=== PATIENT | male | born 1950 | race Caucasian/White ===

== ENCOUNTER 2020-01-05 08:00 | Emergency (ER) | payer MEDICARE ==
--- NOTE | 2020-01-05 08:31 | EDM.PDOC ---
ED HPI GENERAL MEDICAL PROBLEM - General Chief Complaint: Cardiovascular Problem Stated Complaint: HEART ISSUES Time Seen by Provider: 01/05/20 08:15 Source of Information: Reports: Patient History Limitations: Reports: No Limitations - History of Present Illness INITIAL COMMENTS - FREE TEXT/NARRATIVE: 69-year-old male with a years of recurring atrial tachycardia, had a routine checkup 1 week ago and was set up for a stress test on Monday. He did not feel well on Monday though, because of persistent tachycardia so missed his stress test. This morning he woke up and felt great, however shortly after waking up he developed tachycardia. He was able to break it several times but an hour ago he was going upstairs and felt lightheaded and diaphoretic so thought he should get checked out. He has not had any pain, he did take some extra atenolol, he had some nausea but no vomiting which is unusual for him to have nausea. Onset: Sudden (This morning his episodes started fairly suddenly around 2 hours ago) Location: Reports: Chest Associated Symptoms: Reports: Diaphoresis, Shortness of Breath, Other (Nausea but no vomiting). Denies: Confusion, Cough - Related Data Allergies Allergy/AdvReac Type Severity Reaction Status Date / Time amoxicillin AdvReac Rash Verified 01/05/20 08:11 Home Meds: Home Meds atenoloL [Atenolol] 25 mg PO DAILY 10/23/13 [History] Past Medical History HEENT History: Reports: Impaired Vision Cardiovascular History: Reports: Arrhythmia - Infectious Disease History Infectious Disease History: Reports: Chicken Pox, Influenza, Measles, Mumps - Past Surgical History Head Surgeries/Procedures: Reports: None HEENT Surgical History: Reports: None Cardiovascular Surgical History: Reports: None Dermatological Surgical History: Reports: None Social & Family History - Tobacco Use Tobacco Use Status *Q: Never Tobacco User Second Hand Smoke Exposure: No - Caffeine Use Caffeine Use: Reports: None - Recreational Drug Use Recreational Drug Use: No ED ROS GENERAL - Review of Systems Review Of Systems: See Below Constitutional: Reports: Malaise. Denies: Fever, Chills HEENT: Reports: No Symptoms Respiratory: Reports: Shortness of Breath (With activity) Cardiovascular: Reports: Palpitations. Denies: Chest Pain GI/Abdominal: Reports: Nausea. Denies: Abdominal Pain, Vomiting Musculoskeletal: Reports: No Symptoms Skin: Reports: Diaphoresis (Resolved) Neurological: Reports: Weakness. Denies: Paresthesia Psychiatric: Reports: No Symptoms ED EXAM, GENERAL - Physical Exam Exam: See Below Exam Limited By: No Limitations General Appearance: Alert, No Apparent Distress Eye Exam: Bilateral Eye: Normal Inspection Respiratory/Chest: No Respiratory Distress, Lungs Clear Cardiovascular: Regular Rate, Rhythm, Bradycardia GI/Abdominal: Soft, Non-Tender Extremities: Normal Inspection. No: Pedal Edema Neurological: Alert, Oriented Psychiatric: Normal Affect, Normal Mood Skin Exam: Warm, Dry Course - Vital Signs Last Recorded V/S: Last Vital Signs Temp 98.7 F 01/05/20 08:13 Pulse 52 L 01/05/20 11:54 Resp 13 01/05/20 11:54 BP 148/82 H 01/05/20 11:54 Pulse Ox 93 L 01/05/20 11:54 - Orders/Labs/Meds Orders: Active Orders 24 hr Category Date Time Status EKG 12 Lead [EK] Routine Ther 01/05/20 08:19 Ordered Labs: Laboratory Tests 01/05/20 01/05/20 Range/Units 08:19 11:10 Troponin I 0.218 H* < 0.017 (0.000-0.056) ng/mL Meds: Medications Discontinued Medications Generic Name Dose Route Start Last Admin Trade Name Freq PRN Reason Stop Dose Admin Heparin Sodium (Porcine) 4,000 units 01/05/20 09:29 01/05/20 09:46 Heparin Sodium IVPUSH 01/05/20 09:30 4,000 units ONETIME ONE Administration Heparin Sodium/Dextrose 25,000 units in 500 mls @ 20 mls/hr 01/05/20 09:30 01/05/20 09:47 Heparin 25,000 Units In D5w 500 Ml IV 1,000 units/hr TITRATE KAMRAN 20 mls/hr Administration Protocol 1,000 UNITS/HR - Re-Assessments/Exams Free Text/Narrative Re-Assessment/Exam: 01/05/20 08:30 Patient was placed on cardiac monitoring which showed a sinus bradycardia. EKG showed no ST changes. He was kept on monitoring, I reviewed his recent labs from the clinic and added a troponin which was drawn. 01/05/20 11:51 Troponin initially was 0.216. Consultation was obtained from cardiology and they recommended a heparin drip and transfer for angiogram. However the beds were not available initially and a repeat troponin was drawn 3 hours later which was 0, in hindsight the first lab was likely error due to hemolization. Heparin was stopped, this was discussed with the patient and he will keep his plans for stress test as planned. Departure - Departure Time of Disposition: 12:13 Disposition: Home, Self-Care Clinical Impression: Near syncope, Bradycardia, Palpitations Instructions: Palpitations Referrals: PCP,None [Primary Care Provider] - Forms: ED Department Discharge Care Plan Goals: Continue your current medications, discuss rescheduling the stress test with your primary provider with eventual ablation consultation if appropriate. Return to the emergency room at any time if worsening or concerns. Sepsis Event Note (ED) - Evaluation Sepsis Screening Result: No Definite Risk - Focused Exam Vital Signs: Vital Signs Temp Pulse Resp BP Pulse Ox 01/05/20 11:54 52 L 13 148/82 H 93 L 01/05/20 11:36 50 L 9 L 148/82 H 01/05/20 10:49 50 L 9 L 158/89 H 93 L 01/05/20 08:13 98.7 F 52 L 11 L 160/80 H 95 01/05/20 08:08 98.7 F 52 L 11 L 160/80 H 95 - My Orders Last 24 Hours: My Active Orders 01/05/20 08:19 EKG 12 Lead [EK] Routine - Assessment/Plan Last 24 Hours: My Active Orders 01/05/20 08:19 EKG 12 Lead [EK] Routine
[2020-01-05] MEDS ORDERED: Heparin Sodium 5,000 Units/ML Vial IVPUSH ONE (09:29)
[2020-01-05] MEDS ORDERED: Heparin Sodium/D5W 25,000 UNITS/500 ML BAG IV SCH (09:30)
== END 2020-01-05 12:14 | disposition home or self-care (01) ==
LOC: JP.ED 08:00
DX: R55 Syncope and collapse (principal); R00.2 Palpitations; R00.1 Bradycardia, unspecified; Z88.1 Allergy status to other antibiotic agents; Z79.899 Other long term (current) drug therapy
CPT/HCPCS: 36415; 84484; 93005; 96365; 96366; 99285; J1644

== ENCOUNTER 2022-07-08 01:38 | Emergency (ER) | payer MEDICARE ==
[2022-07-08 02:27] LABS: BASOPHILS ABSOLUTE AUTO 0.06 K/uL (0.00-0.10); BASOPHILS PERCENT AUTO 0.7 % (0.1-1.3); EOSINOPHILS PERCENT AUTO 2.4 % (0.0-5.4); HEMATOCRIT 53.6 % (38.4-49.7); IMMATURE GRAN PERCENT AUTO 0.2 % (0.0-0.7); LYMPHOCYTES ABSOLUTE AUTO 2.09 K/uL (0.8-3.3); LYMPHOCYTES PERCENT AUTO 24.7 % (11.4-47.7); MEAN CORPUSCULAR HEMOGLOBIN 31.7 pg (31.6-35.5); MEAN CORPUSCULAR VOLUME 93.2 fL (81.4-99.0); MONOCYTES ABSOLUTE AUTO 0.73 K/uL (0.20-0.90); MONOCYTES PERCENT AUTO 8.6 % (3.3-12.6); NEUTROPHILS ABSOLUTE AUTO 5.36 K/uL (1.0-7.6); NEUTROPHILS PERCENT AUTO 63.4 % (40.0-78.1); PLATELET COUNT,PLT 183 K/uL (130-375); RED BLOOD CELL COUNT 5.75 M/uL (4.14-5.76); WHITE BLOOD CELL COUNT,WBC 8.5 K/uL (3.2-11.0)
[2022-07-08] MEDS ORDERED: Phenazopyridine 95 MG Tab PO ONE (02:28)
[2022-07-08] MEDS ORDERED: Oxybutynin 5 MG Tab PO SCH (02:30)
[2022-07-08 02:34] LABS: HEMOGLOBIN 18.2 g/dL (12.9-16.9); IMMATURE GRAN ABSOLUTE AUTO 0.02 K/uL (0.00-0.23)
[2022-07-08 02:41] LABS: CALCIUM 9.1 mg/dL (8.5-10.1); EST CRCL DRUG DOSING (CG) 36.64 mL/min; POTASSIUM,K 4.4 mmol/L (3.6-5.2)
[2022-07-08 02:45] LABS: INR 1.2; PROTHROMBIN TIME 11.6 sec (9.2-10.6); PTT,PARTIAL THROMBOPLSTIN TIME 28.4 sec (21.8-27.3)
[2022-07-08 02:49] LABS: ANION GAP 17.4 mmol/L (5.0-14.0)
== END 2022-07-08 03:34 | disposition home or self-care (01) ==
LOC: JP.ED 01:38
DX: T83.098A Other mechanical complication of other urinary catheter, initial encounter (principal); N32.89 Other specified disorders of bladder; N40.0 Benign prostatic hyperplasia without lower urinary tract symptoms; Z88.0 Allergy status to penicillin; Z88.1 Allergy status to other antibiotic agents; Z79.899 Other long term (current) drug therapy
CPT/HCPCS: 36415; 80048; 85025; 85610; 85730; 99284; A9270; 99283

== ENCOUNTER 2023-03-26 21:21 | Emergency (ER) | payer MEDICARE ==
[2023-03-26] MEDS: Albuterol/Ipratropium 3.0-0.5 MG/3 ML Neb Soln NEB ONE (22:22)
[2023-03-26 22:57] LABS: CORONAVIRUS COVID-19 NAA NEGATIVE (NEGATIVE); INFLUENZA A NAA NEGATIVE (NEGATIVE); INFLUENZA B NAA NEGATIVE (NEGATIVE); RESPIRATORY SYNCYTIAL VIR NAA POSITIVE (NEGATIVE)
== END 2023-03-26 23:35 | disposition home or self-care (01) ==
LOC: JP.ED 21:21
DX: J21.0 Acute bronchiolitis due to respiratory syncytial virus (principal); Z20.822 Contact with and (suspected) exposure to COVID-19; Z88.2 Allergy status to sulfonamides; Z88.0 Allergy status to penicillin
CPT/HCPCS: 0241U; 71046; 94640; 99284; 99283; J7620